=== PATIENT | female | born 1975 | race Caucasian/White ===

== ENCOUNTER → 2018-03-29 | Outpatient (CLI) | payer BC | END | disposition home or self-care (01) | LOC: MAMMO 09:11 | DX: N63.10 Unspecified lump in the right breast, unspecified quadrant (principal) | CPT/HCPCS: 76642; 77066 ==

== ENCOUNTER → 2018-04-21 | Day surgery (SDC) | payer BC ==
[~2018-04-21] MED LIST: SODIUM BICARBONATE 4% (2.4MEQ) 5ML VIAL IV ONE
== END ==
LOC: RAD 09:56
PROVIDERS: ATTEND Internal Medicine Nephrology
DX: D24.2 Benign neoplasm of left breast (principal)
CPT/HCPCS: 19083; 88305; A4648; J3490